=== PATIENT | male | born 1980 | race Caucasian/White ===

== ENCOUNTER 2020-05-15 04:57 | Emergency (ER) | payer SELFPAY ==
[~2020-05-15] VITALS: Ht 195.5 cm; Wt 90.4 kg
[2020-05-15 05:05] VITALS: BP 136/88
--- NOTE | 2020-05-15 05:26 | ED Integumentary General ---
General Stated Complaint: RIGHT/LEFT ELBOW/RIGHT THIGH INFECTION History of Present Illness Date Seen by Provider: May 15, 2020 Time Seen by Provider: 05:20 Initial Comments 39-year-old male presents with 3 areas of what appears to be small abscess with cellulitis. He has 1 on his right hand/knuckle with been there since , one near the left elbow and one on the right thigh. He reports the one on elbow and thigh are more recent. He has not been seen by a provider for this. He has no fever chills nausea vomiting or other systemic complaints. Reports he is worried about MRSA. Allergies and Home Medications Patient Home Medication List Home Medication List Reviewed: Yes Review of Systems Review of Systems Constitutional: No chills, No fever Respiratory: no symptoms reported Cardiovascular: no symptoms reported Gastrointestinal: no symptoms reported Genitourinary: no symptoms reported Musculoskeletal: no symptoms reported Skin: see HPI Psychiatric/Neurological: No Symptoms Reported Endocrine: No Symptoms Reported Past Bsntmdi-Basfgf-Xhomaf Hx Past Med/Social Hx: Reviewed Nursing Past Med/Soc Hx Physical Exam Vital Signs Capillary Refill : General Appearance: no apparent distress Cardiovascular: normal peripheral pulses, regular rate, rhythm Respiratory: no respiratory distress, no accessory muscle use Gastrointestinal: non tender, soft Skin Problem Location: upper extremities, lower extremities Skin Problem Character: abscess, other (3 small areas of abscess with slight areas of cellulitis located on right hand, right upper thigh and near the left elbow. All 3 are already open and draining) Progress/Results/Core Measures Progress Progress Note : Time: 05:27 Progress Note Patient with 3 small abscesses that are open and draining. 1 he reports has been there since . I will treat him with Bactrim. Recommend a follow- up with her primary care provider in 5 to 7 days for recheck to ensure that it is improving. Patient discharged home in stable condition Departure Impression Primary Impression: Abscess of multiple sites Disposition: HOME, SELF-CARE Condition: Stable Departure-Patient Inst. Referrals: [facility] (PCP) Primary Care Physician Patient Instructions: Skin Abscess Scripts Sulfamethoxazole/Trimethoprim (Bactrim Ds Tablet) 1 Each Tablet 1 EACH PO BID, #20 TAB Prov: ONAM NAYAK DO 05/15/20 NOAM NAYAK DO May 15, 2020 05:26
[2020-05-15] MEDS ORDERED: SULF1TAB35 PO (05:29)
== END 2020-05-15 05:36 | disposition home or self-care (01) ==
LOC: ER FS 05:04
DX: L02.511 Cutaneous abscess of right hand (principal); L02.415 Cutaneous abscess of right lower limb
CPT/HCPCS: 99282